=== PATIENT | female | born 1935 | race Caucasian/White ===

== ENCOUNTER → 2024-06-05 10:51 | Outpatient (REF) | payer MEDICARE, BC, SELFPAY | LOC: RAD 10:51 | PROVIDERS: ATTENDING PHYSICIAN Internal Medicine Cardiovascular Disease; FAMILY PHYSICIAN Family Medicine | DX: I48.0 Paroxysmal atrial fibrillation (principal) | CPT/HCPCS: 75572; Q9967 ==

== ENCOUNTER 2024-07-04 08:05 | Inpatient (IN) | payer MEDICARE, BC, SELFPAY ==
[2024-06-26 11:39] VITALS: BMI 24.9
[2024-06-26 12:16] LABS: % Basophils 0.5 % (0-2); % Eosinophils 4.2 % (0-6); % Immature Granulocytes 0.3 % (0-0.5); % Lymphocytes 25.3 % (20.5-51.1); % Monocytes 14.1 % (1.7-9.3); % Neutrophils 55.6 % (42.2-75.2); Absolute Eosinophils 0.2 10^3/uL (0-0.7); Absolute Monocytes 0.5 10^3/uL (0.1-0.6); Absolute Neutrophils 2.1 10^3/uL (1.4-6.5); Hematocrit 40.6 % (37.0-47.0); Hemoglobin 13.1 g/dL (12.0-16.0); Mean Corp Hgb Conc. 32.3 g/dL (33.0-37.0); Mean Corpuscular Hgb 29.4 pg (27.0-31.0); Mean Platelet Volume 11.7 fL (7.4-10.4); Nucleated Red Blood Cells % 0 %; Platelet Count 146 10^3/uL (130-400); Red Blood Cell Count 4.46 10^6/uL (4.20-5.40); Red Cell Dist. Width 14.6 % (11.5-14.5); White Blood Cell Count 3.8 10^3/uL (4.8-10.8)
[2024-06-26 12:30] LABS: INR 1.32; PT 16.2 Sec (11.4-14.6)
[2024-06-26 12:44] LABS: ALT (SGPT) 13 U/L (0-35); AST (SGOT) 35 U/L (14-36); Albumin 3.6 g/dl (3.5-5.0); Alkaline Phosphatase 96 U/L (38-126); Blood Urea Nitrogen 20 mg/dl (7-17); Calcium 9.8 mg/dl (8.4-10.2); Carbon Dioxide 30 mmol/L (22-30); Chloride 104 mmol/L (98-107); Estimated Creatinine Clearance 45 ml/min; Glucose 106 mg/dl (70-99); Potassium 4.8 mmol/L (3.5-5.1); Sodium 140 mmol/L (135-145); Total Bilirubin 0.5 mg/dl (0.2-1.3); Total Protein 6.4 g/dl (6.3-8.2); eGFR > 60.00
[2024-07-04] VITALS (23 sets, daily range): BP systolic 104–168; BP diastolic 50–104; BMI 24.2
[2024-07-04 10:54] LABS: ACT-LR - POC 302 Seconds (116-155)
--- NOTE | 2024-07-04 11:18 | ITS.CL.PN ---
Cable Ferry Operator - Procedure Note
Procedure
Procedure Note:
Watchman implantation report
Date: July 04, 2024
History: History of elevated stroke risk and bleeding risk who presents for watchman implantation
Transseptal roughing mill operator: Raven
Device delivery outboard system operator: Jasen
Referring: Dr. Gee Payne
Procedure report:
After informed consent and patient safety timeout the patient was sedated by the anesthesiology service. DIANNE probe was dropped to the esophagus for imaging for transseptal puncture and for device delivery. See separate report. Utilizing
ultrasound guidance the right femoral vein was accessed with with an 8 Norwegian and 9 Norwegian sheaths. Intracardiac ultrasound was utilized to image the fossa for transseptal puncture. Heparin was given for an ACT greater than 350 seconds.
Once heparin was given the pigtail wire and the watchman sheath and dilator system was brought to the SVC and the pigtail wire was withdrawn into the dilator. The fossa was then engaged in a mid mid access site and the RF wire crossed in the left
atrium and the sheath was brought into the left atrium. Pigtail catheter engage the left atrial appendage and dye injection demonstrated a bilobar appendage. A 27 mm device was chosen for a ostium with of 21 to 22 mm with dye injection. The more
anterior lobe was engaged first and the device was deployed although the device did not fully open on the mitral edge and the first 27 mm device was removed from the body. A second 27 mm device was engaged in the more posterior lobe with ostial
position meeting Pass criteria and the device was deployed after tug testing and intracardiac ultrasound demonstrating compression of between 20 and 25%. The device was then deployed and sheath was removed into the right atrium.
Protamine was given and intracardiac ultrasound and watchman sheath were removed with a [id number] stitch. There was no pericardial effusion pre and post ablation.
Impression:
Status post 27 mm Watchman device delivery as above
Plan:
Will lower Eliquis to 2.5 mg p.o. twice daily x 3-month and then transesophageal echocardiogram. Given her BMI and age 2.5 mg p.o. twice daily is her appropriate dosing.
--- NOTE | 2024-07-04 17:41 | ITS.CL.PN ---
Extrusion Bender - Procedure Note
Procedure
Procedure Note:
Procedure Report:
Interventional Procedure Report
Date of Procedure: July 04, 2024
Procedure: Watchman LAAO with #27 mm Watchman FLX device
Transseptal siphon operator: Dr. Siddhartha Carbajal
Device delivery: Dr. Wade Aggarwal
History: History of elevated stroke risk and bleeding risk who presents for Watchman implantation
PROCEDURES:
1. Left atrial appendage occlusion device using 27 mm WATCHMAN FLX Pro device
2. ICE imaging for guidance of EDMOND crossing
3. Ultrasound-guided right common femoral venous access
ACCESS: Right common femoral vein, 14Fr sheath under US guidance, 9F sheath under ultrasound guidance
HEMODYNAMICS:
LA Pressure 12 mmHg
PROCEDURE REPORT:
After informed consent and patient safety 'Timeout' the patient was intubated and sedated by the anesthesiology service. Under ultrasound guidance, the right femoral vein was accessed by Dr. Siddhartha Carbajal for transseptal puncture and 8F and 9F
sheaths placed for transseptal crossing and ICE imaging, respectively. Concomitant transesophageal echocardiogram was performed by Dr. Shashank Marie.
Baseline DIANNE images revealed no EDMOND thrombus and a very small limited pericardial effusion posterior to the left atrial appendage.
The patient was heparinized for an ACT > 300 seconds. The 8F sheath was exchanged over the [employer] RF wire for the Watchman double curve sheath which was advanced under fluoroscopic and DIANNE guidance to the SVC. The fossa was then engaged in a mid mid
access site and the RF wire crossed in the left atrium and the sheath was brought into the left atrium. Left atrial pressure was 12 mmHg.
A 5 Nepali pigtail catheter was placed into the left atrial appendage and an appendage gram was performed using intravenous contrast dye demonstrating a bilobar appendage and anatomy suitable for a 27 mm WATCHMAN FLX device.
After appropriately prepping the device, Dr. Wade Aggarwal deployed a 27 mm WATCHMAN FLX device. The device was noted on fluoroscopy and DIANNE to have an invagination of the fabric that persisted despite tug test. Thus, the device was recaptured
and exchanged for a new device. Deployment of the second device was successful after a single recapture and adjusted deployment angle to achieve more superior device orientation. Final positioning was excellent with no leaks post device deployment.
22-25% compression was noted in the device after deployment. A 'tug-test' was performed demonstrating stability of the device. Given PASS criteria were met, the device was then released successfully by Dr. Wade Aggarwal.
Post procedure, DIANNE imaging demonstrated no pericardial effusion. The catheter was removed from the left atrium with care to not interfere with the pacemaker leads. Heparin was reversed using protamine. The catheter was removed from the femoral vein
with figure of eight knot used for hemostasis. The patient was extubated and tolerated the procedure well.
CONCLUSIONS
1. Successful deployment of 27 mm WATCHMAN FLX Pro device under DIANNE guidance.
RECOMMENDATIONS
1. Will lower Eliquis to 2.5 mg p.o. twice daily x 3-month. Given her BMI and age 2.5 mg p.o. twice daily is her appropriate dosing.
2. Repeat DIANNE in 3 months
Signed: Wade Aggarwal
--- NOTE | 2024-07-04 17:54 | PTCARENOTE ---
Received pt from [facility] s/p Diamond procedure @[id number] . Pt NSR on the monitor. Right groin cath site with figure of eight stitch c/d/i. VSS. Will monitor.
[2024-07-04] MEDS: BETAPACE 80 MG PO (19:14)
[2024-07-04] MEDS: ELIQUIS 2.5 MG PO (19:15)
--- NOTE | 2024-07-04 21:57 | PTCARENOTE ---
Pt. received at change of shift. Pt. seen and assessed in room. Pt. AOx3, tele reading NSR 60s. BP WNL. R groin site c/d/i. No complaints of pain at this time. RN explained plan of care, Pt. verbalizes understanding. Call gooden within reach.
Continuing to monitor at this time.
[2024-07-05 02:04] VITALS: BP 113/69
[2024-07-05 02:15] VITALS: BP 113/69
[2024-07-05 02:18] VITALS: BMI 24.5
[2024-07-05 02:24] LABS: Hematocrit 32.6 % (37.0-47.0); Mean Corp Hgb Conc. 33.7 g/dL (33.0-37.0); Mean Corpuscular Volume 88.8 fL (81.0-99.0); Mean Platelet Volume 12.1 fL (7.4-10.4); Platelet Count 105 10^3/uL (130-400); Red Blood Cell Count 3.67 10^6/uL (4.20-5.40); Red Cell Dist. Width 14.6 % (11.5-14.5); White Blood Cell Count 5.2 10^3/uL (4.8-10.8)
[2024-07-05 03:00] LABS: Blood Urea Nitrogen 21 mg/dl (7-17); Calcium 9.1 mg/dl (8.4-10.2); Carbon Dioxide 23 mmol/L (22-30); Chloride 108 mmol/L (98-107); Estimated Creatinine Clearance 63 ml/min; Glucose 102 mg/dl (70-99); Magnesium 2.1 mg/dl (1.6-2.3); Potassium 4.5 mmol/L (3.5-5.1); Sodium 137 mmol/L (135-145); eGFR > 60.00
[2024-07-05 06:53] VITALS: BP 140/110
[2024-07-05 06:55] VITALS: BP 95/53
[2024-07-05 06:57] VITALS: BP 94/49
--- NOTE | 2024-07-05 07:41 | W.PN.CARDCBS ---
Addendum entered and electronically signed by Siddhartha Carbajal MD 07/05/24 10:40:
patient seen and examined
agree with ELECTRICAL MAINTENANCE SUPERVISOR note and assessment
agree with ELECTRICAL MAINTENANCE SUPERVISOR plan
exam:
as per ELECTRICAL MAINTENANCE SUPERVISOR note
jvp 6
cor regular
lungs ctab
abd soft nt nd
no edema
Impression:
Paroxysmal atrial fibrillation.
ICH after fall, ambulatory dysfunction
Hypertension.
Hyperlipidemia.
Hemorrhoidal bleeding.
Paraesophageal hernia.
Syncope.
Balance and gait disturbance.
Osteoarthritis.
Hyperglycemia.
Plan:
post 27mm Watchman device implant 07/04/24
groin stable, mild ecchymosis
tele SB
Will decrease Eliquis to 2.5mg bid for next 3 mo
continue sotalol
Activity restrictions reviewed
f/u DIANNE 3 mo
stable for d/c home
continue cardiac care with Dr. Payne
Original Note:
Today's Communication / Plan
-
post Watchman device, stable for d/c home
Impression / Plan
-
PCP: Tuan Del Toro DO
CDY: Gee Payne MD
Impression:
Paroxysmal atrial fibrillation.
ICH after fall, ambulatory dysfunction
Hypertension.
Hyperlipidemia.
Hemorrhoidal bleeding.
Paraesophageal hernia.
Syncope.
Balance and gait disturbance.
Osteoarthritis.
Hyperglycemia.
Plan:
post 27mm Watchman device implant 07/04/24
groin stable, mild ecchymosis
tele SB
Will decrease Eliquis to 2.5mg bid for next 3 mo
continue sotalol
Activity restrictions reviewed
f/u DIANNE 3 mo
stable for d/c home
continue cardiac care with Dr. Payne
Progress Note - Paste Mixing Supervisor
Subjective
Date of Service: July 05, 2024
denies cp, sob
Objective
Labs:
07/05/24 02:11
07/05/24 02:11
Labs
Hgb 11.0 g/dL (12.0-16.0) L 07/05/24 02:11
Hct 32.6 % (37.0-47.0) L 07/05/24 02:11
Plt Count 105 10^3/uL (130-400) L 07/05/24 02:11
PT 16.2 Sec (11.4-14.6) H 06/26/24 11:48
INR 1.32 06/26/24 11:48
Sodium 137 mmol/L (135-145) 07/05/24 02:11
Potassium 4.5 mmol/L (3.5-5.1) 07/05/24 02:11
BUN 21 mg/dl (7-17) H 07/05/24 02:11
Creatinine 0.6 mg/dL (0.6-1.0) 07/05/24 02:11
Glucose 102 mg/dl (70-99) H 07/05/24 02:11
Vital Signs and I&O:
Vital Signs
Temp Pulse Resp BP Pulse Ox
98.2 F 63 18 94/49 98
07/05/24 06:55 07/05/24 07:15 07/05/24 06:55 07/05/24 06:57 07/05/24 06:55
Vital Signs
Temp Pulse Resp BP Pulse Ox
98.2 F 63 18 94/49 98
07/05/24 06:55 07/05/24 07:15 07/05/24 06:55 07/05/24 06:57 07/05/24 06:55
Intake & Output
07/03/24 07/04/24 07/05/24 07/06/24
06:59 06:59 06:59 06:59
Intake Total 100 / 100
Balance 100 / 100
Physical Exam
Physical Exam
NAD, AOx3
S1, S2, RRR
CTAB, non labored, no wheeze
SNTND Bsx4
R fem site c/d/i, no HT, soft, mild ecchymosis
[2024-07-05] MEDS: ZESTRIL 10 MG PO (08:13)
[2024-07-05] MEDS: ELIQUIS 2.5 MG PO (08:13)
[2024-07-05] MEDS: LIPITOR 20 MG PO (08:14)
[2024-07-05] MEDS: BETAPACE 80 MG PO (08:14)
--- NOTE | 2024-07-05 08:29 | W.DS.TRANS ---
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
-
Discharge Instructions:
Sleep Apnea Risk Low
Discharge Diagnosis/Procedures AFib, s/p Watchman device implant
Diet Low Cholesterol
Driving Restrictions No driving for 24 hours
Others Tests Follow up DIANNE has been scheduled for you at
[facility] on 10/05/2024. You will
receive instructions in the mail and a call the
day prior with arrival time.
Instructions:
Stand-Alone Forms: DC Instructions- Cath/EP Lab
Changes to Home Medications: Yes
Discharge Medications:
DC Medications w/original date entered in [employer]
Triple Flex Mood, Joint CAMERON-e 1 tab PO DAILY 06/22/24
Vitamin C 1 dose PO DAILY 06/22/24
Vitamin D3 1 tab PO DAILY 06/22/24
atorvastatin 20 mg tablet 20 mg PO DAILY 06/22/24
calcium 1 tab PO DAILY 06/22/24
vqsiosj-vdbuxepka-uixq 1 tab PO DAILY 06/22/24
cranberry 1 cap PO DAILY 06/22/24
multivitamin 1 tab PO DAILY 06/22/24
quinapril 10 mg tablet 10 mg PO DAILY 06/22/24
sotalol 80 mg tablet 80 mg PO BID 06/22/24
vit C 250 mg-E 90 mg-zinc 40 mg-copper 1 [id number] chew tablet (PreserVision AREDS-2) 1 tab PO DAILY 06/22/24
vitamin B complex 1 tab PO DAILY 06/22/24
zinc 1 cap PO .EVERY OTHER DAY 06/22/24
apixaban 2.5 mg tablet (Eliquis) 2.5 mg PO BID #60 tabs 07/04/24
Home Medication Changes
Decrease eliquis to 2.5mg bid
Pending Results: No
--- NOTE | 2024-07-05 08:47 | PTCARENOTE ---
Rec'd pt this shift awake and alert in bed. Pt assisted OOB to chair. Pt NSR on monitor. RA. Lungs clear. Pt denies pain, denies sob. AM meds given. See worklist for VS/I and O and assessments.
--- NOTE | 2024-07-05 10:22 | CM ---
CM following for DC planning needs.
Pt. anticipated for DC today without needs.
Plan is for home, no needs.
--- NOTE | 2024-07-05 11:01 | PTCARENOTE ---
discharge instructions given to patient and patients daughter. INT d/c'd.
== END 2024-07-05 11:03 | disposition home or self-care (01) | DRG 274 ==
LOC: IVU 08:05
PROVIDERS: Internal Medicine; Nurse Practitioner; Student in an Organized Health Care Education/Training Program; ADMITTING PHYSICIAN Internal Medicine Cardiovascular Disease; FAMILY PHYSICIAN Family Medicine; REFERRING PHYSICIAN Internal Medicine Cardiovascular Disease
PROC: 02L73DK Occlusion of Left Atrial Appendage with Intraluminal Device, Percutaneous Approach (ICD-10-PCS; 2024-07-04)
PROC: B24BZZ4 Ultrasonography of Heart with Aorta, Transesophageal (ICD-10-PCS; 2024-07-04)
DX: I48.0 Paroxysmal atrial fibrillation (principal); Z00.6 Encounter for examination for normal comparison and control in clinical research program; I31.39 Other pericardial effusion (noninflammatory); Z91.81 History of falling; R26.2 Difficulty in walking, not elsewhere classified; I10 Essential (primary) hypertension; E78.5 Hyperlipidemia, unspecified; M19.90 Unspecified osteoarthritis, unspecified site; R73.9 Hyperglycemia, unspecified; R00.1 Bradycardia, unspecified; Z79.01 Long term (current) use of anticoagulants; Z87.820 Personal history of traumatic brain injury; Z87.19 Personal history of other diseases of the digestive system; Z87.891 Personal history of nicotine dependence
CPT/HCPCS: 33340; 36415; 80048; 80053; 83735; 85025; 85027; 85347; 85610; 86850; 86900; 86901; 87070; 93005; 93355; C1759; C1769; C1892; C1894; Q9967

== ENCOUNTER 2024-10-05 06:58 | Day surgery (SDC) | payer MEDICARE, BC, SELFPAY | END 2024-10-05 09:40 | disposition home or self-care (01) | LOC: CATH 06:58 | PROVIDERS: ATTENDING PHYSICIAN Internal Medicine Cardiovascular Disease; FAMILY PHYSICIAN Family Medicine; OTHER PHYSICIAN Internal Medicine Cardiovascular Disease | DX: Z45.09 Encounter for adjustment and management of other cardiac device (principal); I48.0 Paroxysmal atrial fibrillation; I10 Essential (primary) hypertension; E78.5 Hyperlipidemia, unspecified; Z79.01 Long term (current) use of anticoagulants | CPT/HCPCS: 93312; 93320; 93325 ==